=== PATIENT | male | born 1995 | race African-American/Black ===

== ENCOUNTER 2021-04-02 15:07 | Emergency (ER) | payer OTHER ==
[~2021-04-02] VITALS: Ht 152.4 cm; Wt 61.4 kg
[2021-04-02 19:01] VITALS: BP 130/66
--- NOTE | 2021-04-03 06:21 | ECGEPIP ---
[facility] - ED Test Date: 2021-04-02 Pat Name: ZAHEER CASILLAS Department: Room: - Gender: Male Family Protection Specialist: MARCELLA : 1995 Requested By: APARNA SHANNON Order Number: [id number] Reading MD: Peyton Christopher Measurements Intervals [place] Rate: 65 P: 65 CT: 180 QRS: 59 QRSD: 96 T: 50 QT: 334 QTc: 347 Interpretive Statements Normal sinus rhythm Nonspecific ST T wave changes No prior ECG for comparison Electronically Signed on 04-03-2021 6:20:37 EST by Peyton Christopher
== END 2021-04-02 19:23 | disposition home or self-care (01) ==
LOC: M ED 15:07
DX: K64.8 Other hemorrhoids (principal); G89.29 Other chronic pain; R07.9 Chest pain, unspecified